=== PATIENT | male | born 1980 | race African-American/Black ===

== ENCOUNTER 2019-02-26 08:40 | Observation (INO) | payer OTHER ==
[~2019-02-26 08:40] MED LIST: DESFLURANE 15 MIN
[2019-02-26] MEDS ORDERED: MEPERIDINE 25 MG INJ IV (09:30)
[2019-02-26] MEDS ORDERED: ONDANSETRON 4 MG INJ IV ×3 (09:30→18:00)
[2019-02-26] MEDS ORDERED: HYDROmorphONE 1 MG/5 ML IV SYRINGE IV ×6 (09:30→15:30)
[2019-02-26] MEDS ORDERED: OXYCODONE/ACETAMINOPHEN (5/325) TAB PO ×3 (09:30→16:00)
[2019-02-26] MEDS: LACTATED RINGER'S 1,000 ML IV (09:41)
[2019-02-26] MEDS ORDERED: MIDAZOLAM 1 MG/ML 2 ML INJ (09:48)
[2019-02-26] MEDS ORDERED: ROPIVACAINE 0.5 % 30 ML VIAL ×3 (09:48→16:47)
[2019-02-26] MEDS ORDERED: LIDOCAINE 100 MG SYRINGE (09:48)
[2019-02-26] MEDS ORDERED: PROPOFOL 20 ML (09:48)
[2019-02-26] MEDS ORDERED: FENTAnyl 50 MCG/ML VIAL ×2 (09:48→11:35)
[2019-02-26] MEDS ORDERED: CEFAZOLIN 1 GM INJ (09:48)
[2019-02-26] MEDS ORDERED: POLYMYXIN/BACITRACIN 1L IRRIG (11:02)
[2019-02-26] MEDS ORDERED: ROCURONIUM 50 MG INJ (11:23)
[2019-02-26] MEDS ORDERED: SUCCINYLCHOLINE CHLORIDE 100 MG/5 ML SYG IV (11:23)
[2019-02-26] MEDS ORDERED: DEXAMETHASONE 4 MG/ML 5 ML INJ (11:33)
[2019-02-26] MEDS ORDERED: FAMOTIDINE 20 MG INJ (11:33)
[2019-02-26] MEDS ORDERED: ONDANSETRON 4 MG INJ (11:33)
[2019-02-26] MEDS: POLYMYXIN/BACITRACIN 1L IRRIG IRR ×2 (11:59→14:32)
[2019-02-26] MEDS ORDERED: PHENYLephrine (100 MCG/ML) 10ML SYG (12:08)
[2019-02-26] MEDS ORDERED: GLYCOPYRROLATE 0.4 MG INJ (12:09)
[2019-02-26] MEDS ORDERED: NEOSTIGMINE 3 MG/3 ML SYRINGE (12:09)
[2019-02-26] MEDS ORDERED: HYDROmorphONE 2 MG/ML SYG (14:22)
[2019-02-26] MEDS ORDERED: NEOMYC/POLYMYX/BACIT 30 GM OINT (14:34)
[2019-02-26] MEDS: NEOMYC/POLYMYX/BACIT 30 GM OINT TOP (14:58)
[2019-02-26] MEDS: HYDROmorphONE 1 MG/5 ML IV SYRINGE IV (15:36)
[2019-02-26] MEDS: OXYCODONE/ACETAMINOPHEN (5/325) TAB PO (15:50)
[2019-02-26] MEDS: MEPERIDINE 25 MG INJ IV (16:07)
[2019-02-26] MEDS ORDERED: DIPHENHYDRAMINE 25 MG CAP PO (18:00)
[2019-02-26] MEDS: CEFAZOLIN 1 GM/50 ML (PMX) 50 ML IVPB (20:12)
[2019-02-26] MEDS: GABAPENTIN 300 MG CAP PO (20:22)
[2019-02-27] MEDS: CEFAZOLIN 1 GM/50 ML (PMX) 50 ML IVPB ×3 (00:23→12:01)
[2019-02-27] MEDS: LACTATED RINGER'S 1,000 ML IV (05:37)
[2019-02-27] MEDS: GABAPENTIN 300 MG CAP PO ×2 (09:08→12:01)
[2019-02-27] MEDS: HYDROmorphONE 1 MG/ML SYG IV (13:21)
[2019-02-27] MEDS: oxyCODONE 5 MG TAB PO (14:50)
[2019-02-27] MEDS: ACETAMINOPHEN 325 MG TAB PO (15:42)
== END 2019-02-27 16:01 | disposition home or self-care (01) ==
LOC: SDS 08:40 → L-D 17:53 → 2NE 19:35 → MS1 19:50
DX: T84.84XA Pain due to internal orthopedic prosthetic devices, implants and grafts, initial encounter (principal); M89.9 Disorder of bone, unspecified; Y83.8 Other surgical procedures as the cause of abnormal reaction of the patient, or of later complication, without mention of misadventure at the time of the procedure
CPT/HCPCS: 20680; 73610; 82306; 88300; 97161; 97530; G0378